=== PATIENT | female | born 1950 | race Caucasian/White ===

== ENCOUNTER 2022-02-14 12:08 | Outpatient (CLI) | payer OTHER | END 2022-02-14 19:33 | disposition home or self-care (01) | LOC: SMI 12:08 | PROVIDERS: ATTEND Psychiatry & Neurology Neurology | DX: G31.89 Other specified degenerative diseases of nervous system (principal); R51.9 Headache, unspecified; R29.6 Repeated falls; R26.0 Ataxic gait; R42 Dizziness and giddiness; Z87.828 Personal history of other (healed) physical injury and trauma | CPT/HCPCS: 70544; 70551 ==

== ENCOUNTER 2022-11-15 20:12 | Emergency (ER) | payer OTHER ==
[~2022-11-15] VITALS: Ht 152.4 cm; Wt 54.4 kg
[2022-11-15 20:14] VITALS: BP_SYST 173
[2022-11-15] MEDS ORDERED: KETOROLAC TROMETHAMINE 30 MG VIAL IVP ONE ×2 (20:15→21:30)
[2022-11-15] MEDS ORDERED: ONDANSETRON HCL 4 MG/2 ML VIAL IVP ONE (20:30)
[2022-11-15] MEDS ORDERED: MORPHINE 4 MG INJ. 4 MG/ML VIAL IVP ONE (20:30)
[2022-11-15] MEDS ORDERED: IBUP-1969 PO (22:03)
[2022-11-15] MEDS ORDERED: ACET325T PO (22:03)
[2022-11-15] MEDS ORDERED: HYDR-3921 PO (22:03)
[2022-11-15] MEDS ORDERED: fentaNYL CITRATE/PF 100 MCG/2 ML AMP IVP ONE (22:15)
[2022-11-15] MEDS ORDERED: HYDROmorphone 1 MG/ML INJ. CARTRIDGE IVP ONE (23:30)
[2022-11-16 00:21] VITALS: BP_SYST 152
== END 2022-11-16 00:21 | disposition home or self-care (01) ==
LOC: SED 20:12
DX: S42.302A Unspecified fracture of shaft of humerus, left arm, initial encounter for closed fracture (principal); I10 Essential (primary) hypertension; Z79.899 Other long term (current) drug therapy; W01.0XXA Fall on same level from slipping, tripping and stumbling without subsequent striking against object, initial encounter; Y93.89 Activity, other specified; Y92.89 Other specified places as the place of occurrence of the external cause; Y99.8 Other external cause status
CPT/HCPCS: 99285; 96374; 96375; 73060; 73080; 73090; 73100; 29125; J1885; J2405; J3010; J1170; J2270